=== PATIENT | female | born 1960 | race Caucasian/White ===

== ENCOUNTER 2024-07-17 06:39 | Emergency (ER) | payer MEDICARE ==
[~2024-07-17] VITALS: Ht 142.2 cm; Wt 81.8 kg
[2024-07-17 06:45] VITALS: TEMP 98.5
[2024-07-17] MEDS ORDERED: FLUO20SO24 PO (06:52)
[2024-07-17] MEDS ORDERED: CELE200 PO (06:52)
[2024-07-17] MEDS ORDERED: HYDR25TA2 PO (06:52)
[2024-07-17] MEDS ORDERED: AMLO5TAB66 PO (06:52)
[2024-07-17] MEDS ORDERED: BREX1TAB PO (06:52)
[2024-07-17] MEDS ORDERED: PANT-31 PO (06:52)
[2024-07-17] MEDS ORDERED: LOSA-382 PO (06:52)
[2024-07-17] MEDS: KETOROLAC TROMETHAMINE 30 MG/ML VIAL IM ONE (08:08)
[2024-07-17 08:20] VITALS: BP 145/89; PULSE 72; RESP 16; O2SAT 98
== END 2024-07-17 08:40 | disposition home or self-care (01) ==
LOC: EMS 06:45
DX: S93.402A Sprain of unspecified ligament of left ankle, initial encounter (principal); E11.9 Type 2 diabetes mellitus without complications; I10 Essential (primary) hypertension; Z79.1 Long term (current) use of non-steroidal anti-inflammatories (NSAID); Z79.899 Other long term (current) drug therapy; W10.8XXA Fall (on) (from) other stairs and steps, initial encounter; Y93.89 Activity, other specified; Y92.89 Other specified places as the place of occurrence of the external cause; Y99.8 Other external cause status
CPT/HCPCS: 99284; 82962; 73610; 73630; 96372; J1885